=== PATIENT | female | born 1960 | race Caucasian/White ===

== ENCOUNTER 2017-04-28 15:12 | Outpatient (CLI) | payer OTHER ==
--- NOTE | 2017-04-28 18:23 | MMO ---
BILATERAL SCREENING MAMMOGRAM: 04/28/17 HISTORY: 56-year-old female for screening mammography. COMPARISON: 07/20/12, 06/15/11. FINDINGS: Bilateral MLO and CC views of the breasts show scattered fibroglandular breast tissue. There is no ev idence of suspicious mass, suspicious cluster of microcalcification or area of architectural distorti on. Interpretation of this mammogram was performed with the assistance of computer aided detection. IMPRESSION: BI-RADS 1: Negative Routine annual screening mammography (for women over age 40) POS: [facility]
== END 2017-04-28 15:13 | disposition home or self-care (01) ==
LOC: SCSMAMMO 15:12
PROVIDERS: ATTEND Family Medicine
DX: Z12.31 Encounter for screening mammogram for malignant neoplasm of breast (principal)
CPT/HCPCS: 77067; G0202